=== PATIENT | male | born 1995 | race Caucasian/White ===

== ENCOUNTER 2021-01-08 16:53 | Emergency (ER) | payer OTHER ==
[~2021-01-08] VITALS: Ht 182.9 cm; Wt 79.4 kg
[2021-01-08] MEDS ORDERED: DOXYCYCLINE 10100 M2 PO (17:04)
[2021-01-08 17:50] LABS: ABSOLUTE BASOPHILS 0.1 thou/uL (0.0-0.2); ABSOLUTE EOSINOPHILS 0.2 thou/uL (0.0-0.7); ABSOLUTE LYMPHOCYTES 2.1 thou/uL (0.8-5.3); ABSOLUTE MONOCYTES 0.7 thou/uL (0.0-1.2); ABSOLUTE NEUTROPHILS 6.2 thou/uL (1.6-8.1); BASOPHILS 0.8 %; EOSINOPHILS 2.3 %; HEMATOCRIT 42.8 % (42.0-52.0); HEMOGLOBIN 14.8 gm/dL (14.0-18.0); LYMPHOCYTES 22.2 %; MCH 30.3 pg (26.0-34.0); MCHC 34.6 g/dL (28.0-37.0); MCV 87.4 fL (80.0-100.0); MONOCYTES 7.9 %; MPV 7.5 fl. (7.2-11.1); NUCLEATED RBCS 0 /100WBC; PLATELET COUNT* 195 thou/uL (150-400); POLYS 66.8 %; RBC 4.89 mil/uL (4.50-6.00); RDW-CV 13.7 % (10.5-14.5); WBC 9.2 thou/uL (4.0-11.0)
[2021-01-08 17:58] LABS: CALCIUM 9.2 mg/dL (8.5-10.1); POTASSIUM 4.4 mmol/L (3.5-5.1)
[2021-01-08 18:38] VITALS: BP 129/63
== END 2021-01-08 18:39 | disposition home or self-care (01) ==
LOC: M.ERS 16:53
PROVIDERS: Nurse Practitioner Family
DX: L03.114 Cellulitis of left upper limb (principal)